=== PATIENT | male | born 1930 | race Caucasian/White ===

== ENCOUNTER → 2016-06-06 | Outpatient (CLI) | payer MEDICARE, OTHER | END | disposition home or self-care (01) | LOC: PCVCCLINIC 11:25 | PROVIDERS: ATTEND Internal Medicine | DX: I65.29 Occlusion and stenosis of unspecified carotid artery (principal); I25.10 Atherosclerotic heart disease of native coronary artery without angina pectoris | CPT/HCPCS: 36415 ==

== ENCOUNTER → 2016-06-10 | Outpatient (CLI) | payer MEDICARE, OTHER ==
[~2016-06-10] MED LIST: DIAZEPAM 10 MG TABLET ONE; FENTANYL PF 100 MCG/2 ML VIAL. ONE; HEPARIN for ARTERIAL LINE 1,500 ML ONE; IOHEXOL 300 MG/ML 100ML VIAL. ONE; IOHEXOL 350 MG/ML 100ML VIAL. ONE; IV NORMAL SALINE 1000ML BAG 1,000 ML ONE; LIDOCAINE 1% Multi-Dose 20 ML VIAL. ONE; MIDAZOLAM HCL 2 MG/2 ML VIAL. ONE; hydrALAZINE 20 MG/ML VIAL. ONE
== END | disposition home or self-care (01) ==
LOC: PCVCINTER 09:29
PROVIDERS: ATTEND Internal Medicine
DX: I70.213 Atherosclerosis of native arteries of extremities with intermittent claudication, bilateral legs (principal); I70.92 Chronic total occlusion of artery of the extremities; I65.23 Occlusion and stenosis of bilateral carotid arteries; I70.1 Atherosclerosis of renal artery; I15.0 Renovascular hypertension; I70.0 Atherosclerosis of aorta; I70.8 Atherosclerosis of other arteries; I77.811 Abdominal aortic ectasia; I25.10 Atherosclerotic heart disease of native coronary artery without angina pectoris; E78.00 Pure hypercholesterolemia, unspecified; E11.9 Type 2 diabetes mellitus without complications; I10 Essential (primary) hypertension; R29.898 Other symptoms and signs involving the musculoskeletal system
CPT/HCPCS: 36223; 36225; 36252; 75710; 75716; 76937; 93459; C1751; C1760; C1769; C1894; J0360; J2250; J3010; J7030; Q9967

== ENCOUNTER → 2016-06-26 | Outpatient (CLI) | payer MEDICARE, OTHER | END | disposition home or self-care (01) | LOC: PCVCCLINIC 13:40 | PROVIDERS: ATTEND Internal Medicine | DX: I25.10 Atherosclerotic heart disease of native coronary artery without angina pectoris (principal); E78.00 Pure hypercholesterolemia, unspecified; E11.9 Type 2 diabetes mellitus without complications; I10 Essential (primary) hypertension; I65.29 Occlusion and stenosis of unspecified carotid artery; I73.9 Peripheral vascular disease, unspecified | CPT/HCPCS: G0463 ==

== ENCOUNTER → 2016-10-02 | Outpatient (CLI) | payer MEDICARE ==
--- NOTE | 2016-10-02 12:24 | PCVCIMAG ---
APPROVED REPORT Patient Location: Observation Indications Stenosis Risk Factors Hypertension: Hyperlipidemia Diabetes Surgery/Intervention right Doppler Spectral Velocity Analysis PSV / EDVPSV / EDV ECA (R) 77 / 4 cm/sECA (L) 339 / 21 cm/s dICA (R) 52 / 14 cm/sdICA (L) 37 / 7 cm/s Ana (R) 52 / 11 cm/smICA (L) 93 / 13 cm/s pICA (R) 50 / 8 cm/spICA (L) 65 / 9 cm/s Bulb (R) 44 / 2 cm/sBulb (L) 41 / 6 cm/s dCCA (R) 76 / 6 cm/sdCCA (L) 61 / 9 cm/s mCCA (R) 83 / 9 cm/smCCA (L) 68 / 13 cm/s Vert (R) 83 / 9 cm/sVert (L) 68 / 8 cm/s ICA/CCA 0.68ICA/CCA 1.52 Basic Measurements Blood Pressure: Pulses: Right Left RightLeft Brachial(Sitting) 138/[id number]/76mmHgTemporal Real Time B-Mode Imaging AreaRight Plaque DescriptionLeft Plaque Description VertebralIntermittentAntegrade Findings The right carotid bulb has mild plaque. The right proximal internal carotid artery shows no significant stenosis; changes of carotid endarterectomy. The right common carotid artery shows no significant stenosis. The right external carotid artery shows no significant stenosis. The left carotid bulb has moderate calcified plaque. The left proximal internal carotid artery shows <40% stenosis. The left common carotid artery shows no significant stenosis. The left external carotid artery shows >90% stenosis. Conclusion 1. Changes of right endarterectomy without significant stenosis 2. Left internal carotid stenosis (<40%). 3. Retrograde right vertebral. Antegrade left vertebral Critical Notification Critical Value: No
== END | disposition home or self-care (01) ==
LOC: PCVCIMAG 10:47
PROVIDERS: ATTEND Internal Medicine
DX: I25.10 Atherosclerotic heart disease of native coronary artery without angina pectoris (principal); I10 Essential (primary) hypertension; E11.9 Type 2 diabetes mellitus without complications; I65.23 Occlusion and stenosis of bilateral carotid arteries; I73.9 Peripheral vascular disease, unspecified; E78.5 Hyperlipidemia, unspecified; G61.81 Chronic inflammatory demyelinating polyneuritis; Z87.891 Personal history of nicotine dependence; Z79.82 Long term (current) use of aspirin; Z79.899 Other long term (current) drug therapy
CPT/HCPCS: 93005; 93880; G0463

== ENCOUNTER → 2017-04-08 | Outpatient (CLI) | payer MEDICARE | END | disposition home or self-care (01) | LOC: PCVCCLINIC 11:00 | PROVIDERS: ATTEND Internal Medicine | DX: I25.10 Atherosclerotic heart disease of native coronary artery without angina pectoris (principal); I10 Essential (primary) hypertension; I73.9 Peripheral vascular disease, unspecified; E78.5 Hyperlipidemia, unspecified; E11.9 Type 2 diabetes mellitus without complications; G61.81 Chronic inflammatory demyelinating polyneuritis; Z87.891 Personal history of nicotine dependence; Z79.82 Long term (current) use of aspirin; Z79.899 Other long term (current) drug therapy | CPT/HCPCS: 93005; G0463 ==

== ENCOUNTER → 2017-10-08 | Outpatient (CLI) | payer MEDICARE | END | disposition home or self-care (01) | LOC: PCVCCLINIC 10:49 | DX: I25.10 Atherosclerotic heart disease of native coronary artery without angina pectoris (principal); I10 Essential (primary) hypertension; I73.9 Peripheral vascular disease, unspecified; E78.5 Hyperlipidemia, unspecified; E11.9 Type 2 diabetes mellitus without complications; I65.23 Occlusion and stenosis of bilateral carotid arteries; Z79.82 Long term (current) use of aspirin; Z87.891 Personal history of nicotine dependence | CPT/HCPCS: 93005; G0463 ==

== ENCOUNTER → 2018-09-29 | Outpatient (CLI) | payer MEDICARE | END | disposition home or self-care (01) | LOC: PCVCCLINIC 10:00 | PROVIDERS: ATTEND Internal Medicine | DX: I25.10 Atherosclerotic heart disease of native coronary artery without angina pectoris (principal); I10 Essential (primary) hypertension; I65.23 Occlusion and stenosis of bilateral carotid arteries; E11.51 Type 2 diabetes mellitus with diabetic peripheral angiopathy without gangrene; E78.5 Hyperlipidemia, unspecified; G61.81 Chronic inflammatory demyelinating polyneuritis; E78.00 Pure hypercholesterolemia, unspecified; Z79.82 Long term (current) use of aspirin; Z79.899 Other long term (current) drug therapy; Z87.891 Personal history of nicotine dependence | CPT/HCPCS: 93005; G0463 ==

== ENCOUNTER → 2019-04-02 | Outpatient (CLI) | payer MEDICARE | END | disposition home or self-care (01) | LOC: PCVCIMAG 09:36 | PROVIDERS: ATTEND Internal Medicine | DX: I65.23 Occlusion and stenosis of bilateral carotid arteries (principal); E11.9 Type 2 diabetes mellitus without complications | CPT/HCPCS: 93005; 93880; G0463 ==